=== PATIENT | female | born 1945 | race Caucasian/White ===

== ENCOUNTER 2021-10-22 19:51 | Observation (INO) | payer MEDICARE, MEDICAID ==
[~2021-10-22] VITALS: Ht 157.5 cm; Wt 86.0 kg
[2021-10-22 21:29] LABS: HEMATOCRIT 38.8 % (37.0-47.0); HEMOGLOBIN 12.7 g/dl (12.0-16.0); IMMATURE GRANULOCYTES 0.2 % (0.0-5.0); MEAN CORPUSCULAR HGB 32.4 pG CALC (26.0-32.0); MEAN CORPUSCULAR HGB CONC 32.7 g/dL CAL (32.0-36.0); NEUT# 9.17 thou/uL (2.00-7.15); RED BLOOD COUNT 3.92 mill/uL (4.20-5.60); RED CELL DISTRI WIDTH 11.8 % (11.5-15.5)
[2021-10-22 21:44] LABS: ALBUMIN 4.1 g/dL (3.2-5.0); ALKALINE PHOSPHATASE 89 u/l (38-126); ANION GAP 7 (6-22 (CALC)); BILIRUBIN, TOTAL 0.6 mg/dL (0.0-1.4); BUN 14 mg/dL (8-23); BUN/CREATININE RATIO 16 (12-20 (CALC)); CARBON DIOXIDE 32 mmol/l (22-30); CHLORIDE 104 mmol/l (95-108); CREATININE 0.9 mg/dL (0.5-1.0); GFR FOR AFR.AMER. > 60 ML/MIN (>=60 (CALC)); GFR OTHER RACES > 60 ML/MIN (>=60 (CALC)); POTASSIUM 4.5 mmol/l (3.5-5.1); SGOT/AST 23 u/l (9-36); SODIUM 139 mmol/l (137-146)
[2021-10-22 21:55] LABS: MYOGLOBIN 69 ng/mL (0 - 62)
[2021-10-22 23:30] VITALS: BP 98/50
[2021-10-23] VITALS (15 sets, daily range): BP systolic 95–130; BP diastolic 29–91
[2021-10-23] MEDS ORDERED: ROSUVASTATIN CA10 MG (02:11)
[2021-10-23] MEDS ORDERED: LISINOPRIL10 MG PO (02:12)
[2021-10-23] MEDS ORDERED: METFORMIN HCL500 M2 PO (02:13)
[2021-10-23] MEDS ORDERED: CRESTOR10 MG PO (02:15)
[2021-10-23] MEDS ORDERED: ACID CONTROL MA20 MG (02:19)
[2021-10-23] MEDS ORDERED: FUROSEMIDE20 MG PO (02:19)
[2021-10-23] MEDS ORDERED: PLAVIX75 MG PO (02:20)
[2021-10-23] MEDS ORDERED: LYRICA100 MG PO (02:20)
[2021-10-23] MEDS ORDERED: CENTRUM SILVER PO (02:21)
[2021-10-23] MEDS ORDERED: ASPIRIN81 MG PO (02:21)
[2021-10-23] MEDS ORDERED: PROAIR HFA108 MCG/AC (02:23)
[2021-10-23] MEDS ORDERED: ALBUTEROL SUL0.083 % IN (02:23)
[2021-10-23 16:07] LABS: URINE BILIRUBIN - DIPSTICK NEGATIVE (NEGATIVE); URINE BLOOD DIPSTICK NEGATIVE (NEGATIVE); URINE COLOR YELLOW; URINE GLUCOSE - DIPSTICK >=1000 mg/dL (NEGATIVE); URINE KETONE NEGATIVE (NEGATIVE); URINE LEUK ESTERASE NEGATIVE (NEGATIVE); URINE PH 5.5 (4.5-8.0); URINE PROTEIN - DIPSTICK NEGATIVE (NEG-TRACE); URINE SPECIFIC GRAVITY >=1.030; URINE UROBILINOGEN - DIPSTICK 0.2 E.U./dL (0.2)
[2021-10-23 16:13] LABS: URINE NITRITE - DIPSTICK NEGATIVE (Negative)
[2021-10-24 00:05] VITALS: BP 98/35
[2021-10-24 04:28] VITALS: BP 92/33
[2021-10-24 05:37] LABS: HEMATOCRIT 36.7 % (37.0-47.0); HEMOGLOBIN 12.2 g/dl (12.0-16.0); MEAN CELL VOLUME 98.7 fL CALC (80.0-100.0); MEAN CORPUSCULAR HGB 32.8 pG CALC (26.0-32.0); MEAN CORPUSCULAR HGB CONC 33.2 g/dL CAL (32.0-36.0); RED BLOOD COUNT 3.72 mill/uL (4.20-5.60); RED CELL DISTRI WIDTH 11.5 % (11.5-15.5)
[2021-10-24 06:02] LABS: CREATININE 1.1 mg/dL (0.5-1.0); MAGNESIUM 2.3 mg/dL (1.6-2.3)
[2021-10-24 06:15] LABS: POTASSIUM 5.6 mmol/l (3.5-5.1)
[2021-10-24 06:30] VITALS: BP 111/44
[2021-10-24 11:29] VITALS: BP 108/39
[2021-10-24 12:53] LABS: ANION GAP 10 (6-22 (CALC)); BUN 37 mg/dL (8-23); BUN/CREATININE RATIO 38 (12-20 (CALC)); CARBON DIOXIDE 29 mmol/l (22-30); CHLORIDE 104 mmol/l (95-108); GFR FOR AFR.AMER. > 60 ML/MIN (>=60 (CALC)); GFR OTHER RACES 54 ML/MIN (>=60 (CALC)); POTASSIUM 4.9 mmol/l (3.5-5.1); SODIUM 138 mmol/l (137-146)
[2021-10-24] MEDS ORDERED: ZITHROMAX250 MG PO (12:57)
[2021-10-24] MEDS ORDERED: PREDNISONE10 MG PO (12:57)
[2021-10-24] MEDS ORDERED: ALBUTEROL SUL0.083 % IN (12:58)
== END 2021-10-24 13:05 | disposition home or self-care (01) ==
LOC: ED 19:51 → MS2 23:48
PROVIDERS: Emergency Medicine; ADMIT Internal Medicine; ATTEND Internal Medicine
DX: J44.1 Chronic obstructive pulmonary disease with (acute) exacerbation (principal); J96.21 Acute and chronic respiratory failure with hypoxia; E87.5 Hyperkalemia; I10 Essential (primary) hypertension; E11.51 Type 2 diabetes mellitus with diabetic peripheral angiopathy without gangrene; I25.10 Atherosclerotic heart disease of native coronary artery without angina pectoris; E78.5 Hyperlipidemia, unspecified; F17.200 Nicotine dependence, unspecified, uncomplicated; Z99.81 Dependence on supplemental oxygen; Z95.1 Presence of aortocoronary bypass graft; Z95.5 Presence of coronary angioplasty implant and graft; Z95.2 Presence of prosthetic heart valve; Z79.84 Long term (current) use of oral hypoglycemic drugs; Z20.822 Contact with and (suspected) exposure to COVID-19